=== PATIENT | female | born 1990 | race Hispanic/Latino ===

== ENCOUNTER 2018-07-12 05:40 | Day surgery (SDC) | payer MEDICAID ==
[2018-07-11 13:42] LABS: BASOPHILS % (AUTO) 0.4 % (0.0-5.0); EOSINOPHILS % (AUTO) 2.4 % (0.0-8.0); LYMPHOCYTES % (AUTO) 35.8 % (21.0-51.0); MEAN CORPUSCULAR HEMOGLOBIN 23.8 pg (27.0-33.0); MEAN CORPUSCULAR HGB CONC 32.6 g/dL (32.0-36.0); MONOCYTES % (AUTO) 4.3 % (3.0-13.0); NEUTROPHILS % (AUTO) 57.1 % (40.0-77.0); PLATELET COUNT (AUTO) 360 K/uL (130-400); RED BLOOD CELL COUNT(AUTO) 4.66 MIL/uL (4.00-5.50); WHITE BLOOD COUNT (AUTO) 6.5 K/uL (4.8-10.8)
[2018-07-11 14:17] VITALS: BP 119/63
[~2018-07-12] VITALS: Ht 167.6 cm; Wt 98.7 kg
[2018-07-12] VITALS (15 sets, daily range): BP systolic 112–127; BP diastolic 65–82
[2018-07-12] MEDS ORDERED: CEFAZOLIN SODIUM 1 GM VIAL IVP SCH (06:00)
[2018-07-12] MEDS ORDERED: LACTATED RINGERS 1000ML 1,000 ML IV ONE (06:28)
[2018-07-12] MEDS ORDERED: FENTANYL CITRATE PF 50 MCG/1 ML 2ML VIAL ONE (08:05)
[2018-07-12] MEDS ORDERED: PROPOFOL 10 MG/ML 20ML VIAL IV ONE (08:05)
[2018-07-12] MEDS ORDERED: ONDANSETRON HCL 4 MG/2 ML VIAL ONE (08:05)
[2018-07-12] MEDS ORDERED: MIDAZOLAM HCL 1 MG/ML 2ML VIAL ONE (08:05)
[2018-07-12] MEDS ORDERED: DEXAMETHASONE SOD PHOSPHATE 10MG/ML 1ML VIAL ONE (08:05)
[2018-07-12] MEDS ORDERED: LIDOCAINE PF 2% 5ML ABBOJECT ONE (08:05)
[2018-07-12] MEDS ORDERED: ROCURONIUM 10MG/1ML SYR 10 MG/ML ML ONE (08:12)
[2018-07-12] MEDS ORDERED: NEOSTIGMINE 5MG/5ML SYR IV ONE (08:42)
[2018-07-12] MEDS ORDERED: GLYCOPYRROLATE 1 MG/5 ML SYRINGE ONE (08:42)
[2018-07-12] MEDS ORDERED: KETOROLAC TROMETHAMINE 30MG/ML ONE (09:22)
== END 2018-07-12 10:55 | disposition home or self-care (01) ==
LOC: DAH 05:40
PROVIDERS: ATTEND Obstetrics & Gynecology
DX: Z30.2 Encounter for sterilization (principal); Z83.3 Family history of diabetes mellitus; Z68.37 Body mass index [BMI] 37.0-37.9, adult; E66.9 Obesity, unspecified
CPT/HCPCS: 36415; 58670; 84702; 85025; 86850; 86900; 86901; A4215; A4351; A4452; A4606; C1769 ×2; J1100; J1885; J2001; J2250; J2405; J2704; J2710; J3010; J3490; J7120

== ENCOUNTER 2022-10-23 22:43 | Observation (INO) | payer MEDICAID, OTHER ==
[~2022-10-23] VITALS: Ht 162.6 cm; Wt 106.6 kg
[2022-10-23 23:09] LABS: BASOPHILS % (AUTO) 0.2 % (0.0-5.0); EOSINOPHILS % (AUTO) 2.2 % (0.0-8.0); LYMPHOCYTES % (AUTO) 42.8 % (21.0-51.0); MEAN CORPUSCULAR HEMOGLOBIN 28.4 pg (27.0-33.0); MEAN CORPUSCULAR HGB CONC 33.9 g/dL (32.0-36.0); MEAN CORPUSCULAR VOLUME 83.7 fL (79-99); NEUTROPHILS % (AUTO) 48.5 % (40.0-77.0); PLATELET COUNT (AUTO) 299 K/uL (130-400); RED BLOOD CELL COUNT(AUTO) 4.54 MIL/uL (4.00-5.50); RED CELL DISTRIBUTION WIDTH 12.5 % (11.0-15.5); WHITE BLOOD COUNT (AUTO) 9.3 K/uL (4.8-10.8)
[2022-10-23 23:20] LABS: CREATININE 0.8 mg/dL (0.5-1.5); POTASSIUM 3.8 mmol/L (3.5-5.1)
[2022-10-23 23:23] LABS: APPEARANCE,URINE CLEAR (CLEAR); BILIRUBIN,URINE NEGATIVE (NEGATIVE); COLOR,URINE LIGHT-YELLOW (YELLOW); GLUCOSE, URINE (UA) NEGATIVE (NEGATIVE); KETONES,URINE NEGATIVE (NEGATIVE); LEUKOCYTE ESTERASE ,URINE 25 Leu/uL (NEGATIVE); NITRATE,URINE NEGATIVE (NEGATIVE); OCCULT BLOOD,URINE NEGATIVE (NEGATIVE); PH,URINE 5.5 (5.0-8.0); PROTEIN,URINE NEGATIVE (NEGATIVE); UROBILINOGEN,URINE 0.2 mg/dL (0.2-1.0)
[2022-10-23 23:24] LABS: TOTAL PROTEIN, SERUM 7.9 g/dL (6.0-8.3)
[2022-10-23 23:26] LABS: BACTERIA,URINE RARE /HPF (None Seen); SQUAMOUS EPITHELIAL CELL,UR FEW /HPF (0-2); WBC,URINE 0-1 /HPF (0-1)
[2022-10-24] MEDS ORDERED: KETOROLAC 30MG VIAL (30MG/ML) IVP ONE (00:30)
[2022-10-24] MEDS ORDERED: PANTOPRAZOLE 40 MG/VIAL IVP ONE (00:30)
[2022-10-24] MEDS ORDERED: ONDANSETRON 4MG INJ IVP ONE (00:30)
[2022-10-24] MEDS ORDERED: ACETAMINOPHEN 325 MG TAB PO PRN ×2 (03:30)
[2022-10-24] MEDS ORDERED: MORPHINE 4 MG SYG IV PRN (03:30)
[2022-10-24] MEDS ORDERED: MORPHINE 2 MG SYG IV PRN (03:30)
[2022-10-24] MEDS ORDERED: ONDANSETRON 4MG INJ IV PRN (03:30)
[2022-10-24] MEDS: LACTATED RINGERS 1000ML 1,000 ML IV SCH ×2 (04:38→17:31)
[2022-10-24 05:29] LABS: BASOPHILS % (AUTO) 0.3 % (0.0-5.0); HEMATOCRIT 38.3 % (36-48); LYMPHOCYTES % (AUTO) 39.1 % (21.0-51.0); MEAN CORPUSCULAR HEMOGLOBIN 28.1 pg (27.0-33.0); MEAN CORPUSCULAR HGB CONC 33.4 g/dL (32.0-36.0); MEAN CORPUSCULAR VOLUME 84.2 fL (79-99); MONOCYTES % (AUTO) 5.9 % (3.0-13.0); NEUTROPHILS % (AUTO) 51.3 % (40.0-77.0); PLATELET COUNT (AUTO) 317 K/uL (130-400); RED BLOOD CELL COUNT(AUTO) 4.55 MIL/uL (4.00-5.50); RED CELL DISTRIBUTION WIDTH 12.5 % (11.0-15.5); WHITE BLOOD COUNT (AUTO) 6.9 K/uL (4.8-10.8)
[2022-10-24 05:49] LABS: INR 1.05 (0.85-1.15); PROTHROMBIN TIME 11.4 SEC (9.6-11.6)
[2022-10-24 05:50] LABS: PARTIAL THROMBOPLASTIN TIME 23.6 SEC (26.3-35.5)
[2022-10-24 05:59] LABS: CREATININE 0.7 mg/dL (0.5-1.5); MAGNESIUM 1.9 mg/dL (1.80-2.40); PHOSPHORUS 4.1 mg/dL (2.5-4.9); POTASSIUM 3.8 mmol/L (3.5-5.1)
[2022-10-24 07:00] VITALS: BP 116/77
[2022-10-24] MEDS: ENOXAPARIN SODIUM 40 MG/0.4 ML SYRINGE SQ SCH (09:35)
[2022-10-24] MEDS: FAMOTIDINE 20MG VIAL IV SCH ×2 (09:35→20:36)
[2022-10-24 11:00] VITALS: BP 115/72
[2022-10-24 16:00] VITALS: BP 122/71
[2022-10-24 19:20] VITALS: BP 130/74
[2022-10-24 23:39] VITALS: BP 125/69
[2022-10-25 04:25] VITALS: BP 110/49
[2022-10-25] MEDS: LACTATED RINGERS 1000ML 1,000 ML IV SCH (06:10)
[2022-10-25 06:25] LABS: BASOPHILS % (AUTO) 0.3 % (0.0-5.0); EOSINOPHILS % (AUTO) 2.7 % (0.0-8.0); HEMATOCRIT 39.3 % (36-48); LYMPHOCYTES % (AUTO) 33.2 % (21.0-51.0); MEAN CORPUSCULAR HEMOGLOBIN 28.8 pg (27.0-33.0); MEAN CORPUSCULAR HGB CONC 34.1 g/dL (32.0-36.0); MEAN CORPUSCULAR VOLUME 84.3 fL (79-99); MONOCYTES % (AUTO) 7.2 % (3.0-13.0); NEUTROPHILS % (AUTO) 56.3 % (40.0-77.0); PLATELET COUNT (AUTO) 298 K/uL (130-400); RED BLOOD CELL COUNT(AUTO) 4.66 MIL/uL (4.00-5.50); RED CELL DISTRIBUTION WIDTH 12.2 % (11.0-15.5); WHITE BLOOD COUNT (AUTO) 6.2 K/uL (4.8-10.8)
[2022-10-25 06:30] LABS: CREATININE 0.7 mg/dL (0.5-1.5); POTASSIUM 3.6 mmol/L (3.5-5.1)
[2022-10-25] MEDS: FAMOTIDINE 20MG VIAL IV SCH (08:15)
[2022-10-25] MEDS: ENOXAPARIN SODIUM 40 MG/0.4 ML SYRINGE SQ SCH (08:16)
[2022-10-25 08:45] VITALS: BP 112/62
[2022-10-25 12:40] VITALS: BP 113/73
== END 2022-10-25 14:10 | disposition home or self-care (01) ==
LOC: EDH 22:43 → INTOOBSV 22:44 → EDHIP 22:44 → 3DH 10-24 05:39
PROVIDERS: ADMIT Family Medicine; ATTEND Family Medicine
DX: K80.00 Calculus of gallbladder with acute cholecystitis without obstruction (principal); Z20.822 Contact with and (suspected) exposure to COVID-19; E66.01 Morbid (severe) obesity due to excess calories; K76.0 Fatty (change of) liver, not elsewhere classified; K82.8 Other specified diseases of gallbladder; Z98.51 Tubal ligation status; Z51.5 Encounter for palliative care; Z68.41 Body mass index [BMI] 40.0-44.9, adult
CPT/HCPCS: 99285; 80053; 83690; 85025 ×3; 81001; 81025; 36415 ×3; 96374; 96376 ×2; 96372 ×2; 96361 ×3; 96375; 83735; 84100; 80048 ×2; 85610; 85730; 85651; 86850; 86900; 86901; 86140; 87635; 76705; 93005; 84145; G0378 ×22; J7120; J3490 ×3; J2405; J1885; C9113; J1650 ×2

== ENCOUNTER 2022-10-31 20:58 | Emergency (ER) | payer OTHER ==
[~2022-10-31] VITALS: Ht 162.6 cm; Wt 108.9 kg
[2022-10-31 23:16] LABS: BASOPHILS % (AUTO) 0.4 % (0.0-5.0); EOSINOPHILS % (AUTO) 1.3 % (0.0-8.0); HEMATOCRIT 41.3 % (36-48); LYMPHOCYTES % (AUTO) 27.8 % (21.0-51.0); MEAN CORPUSCULAR HEMOGLOBIN 28.3 pg (27.0-33.0); MEAN CORPUSCULAR HGB CONC 33.2 g/dL (32.0-36.0); MEAN CORPUSCULAR VOLUME 85.3 fL (79-99); MONOCYTES % (AUTO) 7.3 % (3.0-13.0); PLATELET COUNT (AUTO) 340 K/uL (130-400); RED BLOOD CELL COUNT(AUTO) 4.84 MIL/uL (4.00-5.50); RED CELL DISTRIBUTION WIDTH 12.5 % (11.0-15.5); WHITE BLOOD COUNT (AUTO) 9.5 K/uL (4.8-10.8)
[2022-10-31 23:20] LABS: APPEARANCE,URINE CLOUDY (CLEAR); BILIRUBIN,URINE NEGATIVE (NEGATIVE); COLOR,URINE YELLOW (YELLOW); GLUCOSE, URINE (UA) NEGATIVE (NEGATIVE); KETONES,URINE NEGATIVE (NEGATIVE); LEUKOCYTE ESTERASE ,URINE 500 Leu/uL (NEGATIVE); NITRATE,URINE NEGATIVE (NEGATIVE); OCCULT BLOOD,URINE MODERATE (NEGATIVE); PH,URINE 5.5 (5.0-8.0); PROTEIN,URINE 10 mg/dL (NEGATIVE); UROBILINOGEN,URINE 0.2 mg/dL (0.2-1.0)
[2022-10-31] MEDS ORDERED: ONDANSETRON 4MG INJ IVP ONE (23:30)
[2022-10-31 23:35] LABS: CREATININE 0.8 mg/dL (0.5-1.5); POTASSIUM 3.6 mmol/L (3.5-5.1)
[2022-10-31 23:40] LABS: ALBUMIN 4.2 g/dL (3.5-5.0)
[2022-10-31 23:51] LABS: MUCUS,URINE RARE LPF (None Seen); SQUAMOUS EPITHELIAL CELL,UR MANY /HPF (0-2)
[2022-11-01] MEDS ORDERED: LACTULOSE 20 GM/30 ML UDCUP PO ONE (00:30)
[2022-11-01] MEDS ORDERED: KETOROLAC 30MG VIAL (30MG/ML) IVP ONE (00:30)
[2022-11-01 00:38] LABS: INR 1.09 (0.85-1.15); PROTHROMBIN TIME 11.8 SEC (9.6-11.6)
[2022-11-01 00:39] LABS: PARTIAL THROMBOPLASTIN TIME 30.6 SEC (26.3-35.5)
[2022-11-01] MEDS ORDERED: IBUP-1493 PO (01:09)
[2022-11-01] MEDS ORDERED: OMEP40CA21 PO (01:09)
[2022-11-01] MEDS ORDERED: ONDA-104 PO (01:09)
[2022-11-01 01:31] VITALS: BP 107/55
== END 2022-11-01 02:22 | disposition home or self-care (01) ==
LOC: EDH 20:58
DX: K80.70 Calculus of gallbladder and bile duct without cholecystitis without obstruction (principal)
CPT/HCPCS: 99285; 96374; 76705; 80053; 83690; 85025; 85610; 85730; 87088; 83605; 81001; 81025; 36415 ×2; 96375; J2405; J1885